=== PATIENT | female | born 1995 | race Caucasian/White ===

== ENCOUNTER 2017-11-08 07:47 | Outpatient (CLI) | payer OTHER ==
[~2017-11-08 07:47] MED LIST: ACETAMINOPHEN 325 MG TABLET PO PRN; DIPHENHYDRAMINE HCL 25 MG CAPSULE PO PRN; IRON DEXTRAN COMPLEX 25 MG in SYRINGE, DISPOSABLE, 1 EACH IV PRN; IRON DEXTRAN COMPLEX 975 MG in NORMAL SALINE 1000 ML 1,000 ML IV PRN; NORMAL SALINE 250 ML IV PRN
[2017-11-08 09:23] VITALS: BP 117/76
== END 2017-11-08 14:11 | disposition home or self-care (01) ==
LOC: II 07:47 → 5TH 07:54 → II 14:11
PROVIDERS: ATTEND Internal Medicine Hematology & Oncology
PROC: 3E033GC Introduction of Other Therapeutic Substance into Peripheral Vein, Percutaneous Approach (ICD-10-PCS; principal; 2017-11-08)
DX: D50.9 Iron deficiency anemia, unspecified (principal)
CPT/HCPCS: 96367; 96375; J1750; J7030; J3490; 96365; 96366

== ENCOUNTER 2017-12-19 00:24 | Inpatient (IN) | payer OTHER ==
[2017-12-19] MEDS ORDERED: PENICILLIN G-K 5 MILLION UNIT VIAL ONE ×6 (00:47→21:28)
[2017-12-19 01:06] LABS: ABSOLUTE EOSINOPHILS # (AUTO) 0.1 10^3/uL (0.0-0.6); ABSOLUTE LYMPHOCYTES (AUTO) 2.9 10^3/uL (0.5-4.7); ABSOLUTE MONOCYTES (AUTO) 0.7 10^3/uL (0.1-1.4); ABSOLUTE NEUT (AUTO) 6.7 10^3/uL (1.7-8.2); BASOPHILS % (AUTO) 0.4 % (0-2); HEMATOCRIT 34.7 % (36.0-47.0); HEMOGLOBIN 11.8 g/dL (12.0-15.5); LYMPHOCYTES % (AUTO) 27.7 % (13-45); MEAN CORPUSCULAR HEMOGLOBIN 27.5 pg (27.0-33.4); MEAN CORPUSCULAR VOLUME 81 fl (80-97); PLATELET COUNT 250 10^3/uL (150-450); RED BLOOD COUNT 4.29 10^6/uL (3.72-5.28); RED CELL DISTRIBUTION WIDTH 28.2 % (11.5-14.0); SEGMENTED NEUTROPHILS % (AUTO) 63.9 % (42-78); TOTAL CELLS COUNTED % (AUTO) 100 %; WHITE BLOOD COUNT 10.4 10^3/uL (4.0-10.5)
[2017-12-19 01:08] LABS: APPEARANCE,URINE TURBID; BILIRUBIN,URINE NEGATIVE (NEGATIVE); COLOR,URINE YELLOW; GLUCOSE, URINE NEGATIVE (NEGATIVE); KETONES,URINE NEGATIVE (NEGATIVE); LEUKOCYTE ESTERASE,URINE MODERATE (NEGATIVE); NITRITE,URINE NEGATIVE (NEGATIVE); PROTEIN,URINE 100 mg/dL (NEGATIVE); URINE SPECIFIC GRAVITY 1.004; UROBILINOGEN,URINE NEGATIVE mg/dL (<2.0)
[2017-12-19] MEDS ORDERED: PENICILLIN G POTASSIUM 5,000,000 UNIT in DEXTROSE 5%-WATER 100 ML IV ONE (01:09)
[2017-12-19] MEDS ORDERED: RINGERS SOLUTION,LACTATED 1,000 ML IV ONE (01:09)
--- NOTE | 2017-12-19 01:23 | L&D Progress Notes ---
PROGRESS NOTES Datetime Report Generated by CPN: 12/19/2017 01:22 PROGRESS NOTE Impression: Reassuring Heart Rate Plan: Continue Present Management Informed Consent Obtained: Vaginal Delivery; Section Delivery; Induction of Labor; Risks, Benefits and Alternatives Discussed Comment: The estimated weight by ulices is 10lbs. Greater than 4500 gms but less than 5000gms. No GDM. Risks discussed and she would like to proceed with a vaginal delivery. VAGINAL EXAM Dilatation: 2 Effacement: 60 Station: 0 MEMBRANES Pooling: Positive Membranes: Bulging FETUS A FHR - Baseline: 120 Variability: Moderate 6-25bpm FHR Category: Category I : 41.0 Presentation: Vertex SIGNATURE SIGNATURE: [id number] Signature: with User ID: [email or web address]
[2017-12-19 01:27] LABS: ANISOCYTOSIS 4+; OVALOCYTES 1+; POIKILOCYTOSIS 1+; SCHISTOCYTES 1+; TEAR DROP CELLS 1+; TOXIC GRANULATION 2+
[2017-12-19 01:28] LABS: PLATELET COMMENT ADEQUATE; PLATELET LARGE PRESENT
[2017-12-19] MEDS ORDERED: PENICILLIN G-K 5 MILLION UNIT VIAL IV PRN (01:43)
[2017-12-19 02:39] LABS: URINE AMPHETAMINES SCREEN NEGATIVE; URINE BARBITURATES SCREEN NEGATIVE; URINE BENZODIAZEPINES SCREEN NEGATIVE; URINE COCAINE SCREEN NEGATIVE; URINE MARIJUANA (THC) SCREEN NEGATIVE; URINE METHADONE SCREEN NEGATIVE; URINE PHENCYCLIDINE SCREEN NEGATIVE
[2017-12-19] MEDS: RINGERS SOLUTION,LACTATED 1,000 ML IV PRN (05:00)
[2017-12-19] MEDS ORDERED: PENICILLIN G POTASSIUM 2,500,000 UNIT in DEXTROSE 5%-WATER 50 ML IV SCH (05:10)
[2017-12-19] MEDS ORDERED: NALBUPHINE HCL INJ 10 MG/1 ML AMPULE INJ ONE (06:11)
[2017-12-19] MEDS ORDERED: OXYTOCIN/NORMAL SALINE 20 UNIT/1,000 ML RTUINJ IV PRN (06:11)
[2017-12-19] MEDS ORDERED: PROMETHAZINE HCL INJ 25 MG/1 ML VIAL IV ONE (06:11)
[2017-12-19] MEDS ORDERED: OXYTOCIN/NORMAL SALINE 20 UNIT/1,000 ML RTUINJ ONE ×2 (06:17→08:09)
[2017-12-19] MEDS ORDERED: PROMETHAZINE HCL INJ 25 MG/1 ML VIAL ONE (06:17)
[2017-12-19] MEDS ORDERED: NALBUPHINE HCL INJ 10 MG/1 ML AMPULE ONE (06:17)
[2017-12-19] MEDS ORDERED: MISOPROSTOL 0.2 MG TABLET ONE (08:09)
[2017-12-19] MEDS ORDERED: LIDOCAINE 1% INJ-PF (10 MG/ML) 30 ML SDV ONE (08:09)
[2017-12-19] MEDS: PENICILLIN G-K 5 MILLION UNIT VIAL IV SCH ×4 (10:00→21:35)
[2017-12-19] MEDS ORDERED: CITRIC ACID/SODIUM CITRATE ORAL SOLN 15 ML UDCUP ONE ×2 (12:53→23:09)
[2017-12-19] MEDS ORDERED: BUPIVACAINE HCL 0.25 % INJ/PF (2.5 MG/1 ML) 30 ML VIAL ONE (13:30)
[2017-12-19] MEDS ORDERED: FENTANYL/BUPIVACAINE/NS/PF 200 MCG/100 ML RTUINJ EPI ONE (13:30)
[2017-12-19] MEDS ORDERED: EPHEDRINE SULFATE INJ 50 MG/1 ML AMPULE ONE (13:30)
--- NOTE | 2017-12-19 13:43 | L&D Progress Notes ---
PROGRESS NOTES Datetime Report Generated by CPN: 12/19/2017 13:43 PROGRESS NOTE Impression: Normal Progression of Labor Procedures: Sterile Vag Exam Plan: Continue Present Management; Induction Informed Consent Obtained: Vaginal Delivery; Risks, Benefits and Alternatives Discussed Vital Signs : Reviewed Comment: Here for IOL due to PROM at 40+6ega. Currently on pitocin for IOL. Pt feeling more discomfort with ctx. Cvx change noted and pt desires epidural. EFW 9#14oz. Pelvis adequate for continued GERRY at this time. VAGINAL EXAM Dilatation: 5 Effacement: 80 Station: 0 Contractions: q 2-3 MEMBRANES Membranes: Ruptured Amniotic Fluid Color: Clear FETUS A FHR - Baseline: 130 Monitoring: External US Variability: Moderate 6-25bpm Accelerations: 15X15 Decelerations: None FHR Category: Category I FETUS C SIGNATURE: [id number] Signature: with User ID: [email or web address]
[2017-12-19] MEDS ORDERED: GENTAMICIN SULFATE INJ 80 MG/2 ML VIAL IM ONE (16:34)
[2017-12-19] MEDS ORDERED: GENTAMICIN SULFATE INJ 80 MG/2 ML VIAL IV ONE (16:34)
[2017-12-19] MEDS ORDERED: GENTAMICIN SULFATE INJ 80 MG/2 ML VIAL ONE (16:51)
[2017-12-19] MEDS ORDERED: GENTAMICIN SULFATE 150 MG in DEXTROSE 5%-WATER 100 ML IV ONE (18:30)
[2017-12-19] MEDS ORDERED: ONDANSETRON HCL INJ/PF 4 MG/2 ML SDV ONE (23:58)
[2017-12-20] MEDS ORDERED: ONDANSETRON HCL INJ/PF 4 MG/2 ML SDV IV ONE (00:10)
[2017-12-20] MEDS ORDERED: CITRIC ACID/SODIUM CITRATE ORAL SOLN 15 ML UDCUP ONE (00:26)
[2017-12-20] MEDS ORDERED: CEFAZOLIN 2 GM/D5W RTU 2 GM/50 ML RTUPB IV ONE (00:27)
--- NOTE | 2017-12-20 00:28 | L&D Progress Notes ---
PROGRESS NOTES Datetime Report Generated by CPN: 12/20/2017 00:28 PROGRESS NOTE Impression: Arrest of Dilatation/Descent Procedures: Sterile Vag Exam Plan: Deliver- Section Informed Consent Obtained: Vaginal Delivery; Risks, Benefits and Alternatives Discussed Vital Signs : Reviewed Comment: MVUs not adequate but patient on pitocin 30 units for greater than 2 hours. Cervix unchanged since 1630 despite pitocin break and pitocin to 30 units with IUPC. Pt consented for Primary C/S for Arrest of Dilation. R/B/A reviewed and patient and family desire to proceed with planned procedure. VAGINAL EXAM Dilatation: 6 Effacement: 80 Station: 0 FETUS A FHR - Baseline: 150 Monitoring: External US Variability: Moderate 6-25bpm Accelerations: 15X15 Decelerations: None FHR Category: Category I FETUS C SIGNATURE: [id number] Signature: with User ID: [email or web address]
[2017-12-20] MEDS ORDERED: FENTANYL CITRATE INJ/PF 100 MCG/2 ML AMPUL ONE ×3 (00:37→03:57)
[2017-12-20] MEDS ORDERED: OXYTOCIN 10 UNIT/ML VIAL ONE (00:37)
[2017-12-20] MEDS ORDERED: OXYTOCIN/NORMAL SALINE 0 UNIT/0 ML RTUINJ ONE (00:38)
[2017-12-20] MEDS ORDERED: EPHEDRINE SULFATE INJ 50 MG/1 ML AMPULE ONE (00:38)
[2017-12-20] MEDS ORDERED: ONDANSETRON HCL INJ/PF 4 MG/2 ML SDV ONE (00:38)
[2017-12-20] MEDS ORDERED: MIDAZOLAM 2 MG/2 ML INJ ONE (00:38)
[2017-12-20] MEDS ORDERED: OXYCODONE-ACETAMINOPHEN 5-325 MG TABLET PO PRN ×3 (01:57→02:02)
[2017-12-20] MEDS ORDERED: MORPHINE SULFATE 10 MG/ML INJ IV PRN (01:57)
[2017-12-20] MEDS ORDERED: MEPERIDINE HCL/PF INJ 25 MG/1 ML DISP.SYRIN IV PRN (01:57)
[2017-12-20] MEDS ORDERED: FENTANYL CITRATE INJ/PF 100 MCG/2 ML AMPUL IV PRN ×3 (01:57)
[2017-12-20] MEDS ORDERED: DIPHENHYDRAMINE HCL 50 MG/ML VIAL IV PRN (01:57)
[2017-12-20] MEDS ORDERED: PROMETHAZINE HCL INJ 25 MG/1 ML VIAL IV PRN ×3 (01:57→02:02)
[2017-12-20] MEDS ORDERED: GENTAMICIN SULFATE 110 MG in DEXTROSE 5%-WATER 100 ML IV SCH (02:00)
[2017-12-20] MEDS ORDERED: GENTAMICIN SULFATE INJ 80 MG/2 ML VIAL IV SCH (02:00)
--- NOTE | 2017-12-20 02:01 | Brief Operative Note ---
BRIEF OPERATIVE REPORT DATE OF SURGERY: 12/20/17 TIME OF SURGERY: 02:00 PREOPERATIVE DIAGNOSIS: Arrest of Dilation, Failed Induction of labor, 41+0ega, PROM POSTOPERATIVE DIAGNOSIS: MIKE- delivered, macrosomia SURGEON: TEENA DRAKE FINDINGS: VMI, cephalic presentation, Time of 0107, Apgars 8/9, Weight 4835g (10#11oz), normal tubes/ovaries, IVF 1800ml, UOP 150ml, EBL 800ml COMPLICATIONS: None ESTIMATED BLOOD LOSS: 800ml TISSUE REMOVED OR ALTERED: placenta and cord - not sent to pathology TECHNICAL PROCEDURE: Primary Section
[2017-12-20] MEDS ORDERED: SIMETHICONE 80 MG TAB.CHEW PO PRN (02:02)
[2017-12-20] MEDS ORDERED: ACETAMINOPHEN 325 MG TABLET PO PRN (02:02)
[2017-12-20] MEDS ORDERED: HYDROMORPHONE HCL INJ/PF 2 MG/ML AMPULE IV PRN (02:02)
[2017-12-20] MEDS ORDERED: MEASLES,MUMPS&RUBELLA VACC/PF 0.5 ML VIAL SUBCUT PRN (02:02)
[2017-12-20] MEDS ORDERED: DIPH/PERTUSS(ACELL)/TETANUS VAC/PF 0.5 ML SYR (>=10YO) IM PRN (02:02)
[2017-12-20] MEDS ORDERED: OXYTOCIN/NORMAL SALINE 20 UNIT/1,000 ML RTUINJ IV PRN (02:02)
[2017-12-20] MEDS ORDERED: ACETAMINOPHEN 100 ML IV PRN (02:02)
[2017-12-20] MEDS ORDERED: MISOPROSTOL 0.2 MG TABLET PR ONE (02:04)
[2017-12-20] MEDS ORDERED: MEPERIDINE HCL/PF INJ 25 MG/1 ML DISP.SYRIN ONE (02:08)
[2017-12-20] MEDS ORDERED: AMPICILLIN SOD/SULBACTAM 3 GM VIAL IV PRN (02:15)
[2017-12-20] MEDS ORDERED: AMPICILLIN SOD/SULBACTAM 3 GM VIAL ONE (02:15)
[2017-12-20] MEDS ORDERED: OXYTOCIN/NORMAL SALINE 20 UNIT/1,000 ML RTUINJ ONE (02:20)
[2017-12-20] MEDS ORDERED: HYDROMORPHONE HCL INJ/PF 2 MG/ML AMPULE ONE (02:36)
[2017-12-20] MEDS ORDERED: KETOROLAC TROMETHAMINE INJ/PF 30 MG/1 ML SDV ONE (02:36)
[2017-12-20] MEDS ORDERED: ACETAMINOPHEN 100 ML IV ONE (02:53)
[2017-12-20] MEDS ORDERED: AMPICILLIN SODIUM/SULBACTAM NA 3 GM in NORMAL SALINE 100 ML IV SCH (03:00)
[2017-12-20] MEDS: KETOROLAC TROMETHAMINE INJ/PF 30 MG/1 ML SDV IV SCH ×2 (03:23→17:40)
--- NOTE | 2017-12-20 03:31 | Delivery Summary ---
Del Sum A-C Datetime Report Generated by CPN: 12/20/2017 03:31 DELIVERY PERSONNEL DELIVERY PERSONNEL: [id number] Delivery Doctor:: Hallie Hines MD Anesthesiologist:: Kali Aguirre MD LAUNDRY TUB MAKER:: Jan Dougherty CRNA Labor and Delivery Nurse:: Frances Mittal RN Neonatal Nurse Practitioner:: DANI Tavarez Nursery Nurse:: Vicki Escoto RN MSN Center Medical Specialist/MOLDER WAX BALL: Pricilla Spencer, [employer] SALES REP Center Medical Specialist/MOLDER WAX BALL: [facility] Additional Personnel: : Santiago Love [employer]OLDER [employer]ALL MATERNAL INFORMATION Delivery Anesthesia: Epidural Medications After Delivery: Pitocin Drip 20 Units/1000ml NSS; Other-Please Comment Meds After Delivery Comment: cytotec 1000 mcg [place] Estimated Blood Loss (ml): 700 Maternal Complications: Premature Rupture of Membranes LABOR SUMMARY EDC: 12/13/2017 00:00 No. Babies in Womb: 1 Labor Anesthesia: Epidural LABOR INFORMATION Reason for Induction: Premature Rupture of Membranes Onset of Labor: 12/19/2017 10:07 Oxytocin: Induction Group B Beta Strep: Positive Steroids Given: None Reason Steroids Not Administered: Not Applicable MEMBRANES Membranes Rupture Method: Spontaneous Rupture of Membranes: 12/18/2017 23:50 Length of Rupture (hr): 25.28 Amniotic Fluid Color: Clear Amniotic Fluid Amount: Moderate Amniotic Fluid Odor: Normal STAGES OF LABOR Stage 3 hr: 0 Stage 3 min: 1 Total Time in Labor hr: 15 Total Time in Labor min: 1 VAGINAL DELIVERY Episiotomy: None Laceration #1: None Laceration Extension #1: N/A Laceration Repair: Not Applicable Sponge Count Correct: N/A Sharps Count Correct: N/A CSECTION DELIVERY Primary Indication: Arrest of Dilatation CSection Urgency: Non-Scheduled CSection Incidence: Primary Labor: Labor Elective: Nonelective CSection Incision: Lower Uterine Transverse BABY A INFORMATION Infant Delivery Date/Time: 12/20/2017 01:07 Method of Delivery: Born in Route : No : N/A Forceps: N/A Vacuum Extraction: N/A Shoulder Dystocia : No PRESENTATION/POSITION BABY A Presentation: Cephalic Cephalic Presentation: Vertex PLACENTA INFORMATION BABY A Placenta Delivery Time : 12/20/2017 01:08 Placenta Method of Delivery: Manual Removal Placenta Status: Delivered SCORES BABY A Heart Rate 1 min: >100 bpm Resp Effort 1 min: Good Cry Reflex Irritability 1 min: Cough or Sneeze or Pulls Away Muscle Tone 1 min: Active Motion Color 1 min: Blue/Pale Resuscitation Effort 1 min: Tactile Stimulation SCORE 1 MIN: 8 Heart Rate 5 min: >100 bpm Resp Effort 5 min: Good Cry Reflex Irritability 5 min: Cough or Sneeze or Pulls Away Muscle Tone 5 min: Active Motion Color 5 min: Body [place], Extremities Blue Resuscitation Effort 5 min: Tactile Stimulation SCORE 5 MIN: 9 INFORMATION BABY A Gestational Age at Delivery: 41.0 Gestational Status: Late Term- 41- 41.6 Weeks Infant Outcome : Liveborn Infant Condition : Stable Sex: Male IDENTIFICATION BABY A Verification Date/Time: 12/20/2017 01:15 ID Band Number: [id number] Mother's Name Verified: Yes RN Verifying Infant: CFederico Lowe, RN WEIGHT/LENGTH BABY A Birthweight (gm): 4835 Infant Weight (lb): 10 Infant Weight (oz): 11 Infant Length (in): 21.75 Infant Length (cm): 55.25 CORD INFORMATION BABY A No. Cord Vessels: 3 Nuchal Cord : N/A Cord Blood Taken: Yes-For Eval (Mom's Blood Type - or O+) Infant Suction: Mouth ASSESSMENT BABY A Skin to Skin: Yes Care By: K Escoto, RN _ K Santoyo, CARPENTER REFRIGERATOR Transferred To: Nursery BABY B INFORMATION : N/A
--- NOTE | 2017-12-20 04:31 | Admission Physical ---
Datetime Report Generated by CPN: 12/20/2017 04:30 CURRENT ADMISSION Chief Complaint: Uterine Contractions; Suspected Ruptured Membranes Indication for Induction: Post Dates Indication for Induction: Term, Intrauterine ; No Active Labor; Ruptured Membranes Admit Plan: Admit to Unit; Initiate Labor Induction Protocol ALLERGIES Medication Allergies: No Medication Allergies: No Known Allergies (12/19/2017) Medication Allergies: No Known Allergies (11/05/2017) Latex: No Latex Allergies Food Allergies: none Environmental Allergies: none OBSTETRICAL HISTORY EDC: 12/13/2017 00:00 : 1 Para: 0 Term: 0 : 0 SAB: 0 IAB: 0 Ectopic: 0 Livin Cesareans: 0 VBACs: 0 Multiple Births: 0 Gestational Diabetes: No Rh Sensitization: No Incompetent Cervix: No PHILLIP: No Infertility: No ART Treatment: No Uterine Anomaly: No IUGR: No Hx Previous C/S: No Macrosomia: No Hx Loss/Stillborn: No PIH: No Hx : No Placenta Previa/Abruption: No Depression/PP Depression: No PTL/PROM: No Post Hemorrhage: No Current Procedures: NST Obstetrical History Comments: G1- current SEE RECORDS Alcohol: No Marijuana : No Cocaine: No Other Illicit Drugs: No Cigarettes: Never Smoker. [id number] MEDICAL HISTORY Diabetes: No Blood Transfusion: No Pulmonary Disease (Asthma, TB): No Breast Disease: No Hypertension: No Product Support Rep Surgery: No Heart Disease: No Hosp/Surgery: Yes Autoimmune Disorder: No Anesthetic Complications: No Kidney Disease: No Abnormal Pap Smear: No Neuro/Epilepsy: No Psychiatric Disorders: No Other Medical Diseases: Yes Hepatitis/Liver Disease: No Significant Family History: No Varicosities/Phlebitis: No Trauma/Violence : No Thyroid Dysfunction: Yes Medical History Comments: anemia, thyroid removed in 2006 due to thyroid cancer INFECTIOUS HISTORY Gonorrhea: No Genital Herpes: No Chlamydia: No Tuberculosis: No Syphilis: No Hepatitis: No HIV/AIDS Exposure: No Rash or Viral Illness: No HPV: No PHYSICAL EXAM General: Normal HEENT: Normal Neurologic: Normal Thyroid: Normal Heart: Normal Lungs: Normal Breast: Deferred Back: Normal Abdomen: Normal Genitourinary Exam: Normal Extremities: Normal DTRs: Normal Pelvic Type: Adequate Vital Signs: Reviewed VAGINAL EXAM Dilatation: 6 Dilatation: 5 Dilatation: 2 Effacement: 80 Effacement: 80 Effacement: 60 Station: 0 Station: 0 Station: 0 Contraction Comments: q 2-3 MEMBRANES Pooling: Positive Membranes: Ruptured Membranes: Bulging Amniotic Fluid Color: Clear FETUS A EGA: 40.6 Monitoring: External US FHR- Baseline: 120 Variability: Moderate 6-25bpm FHR Category: Category I Presentation: Vertex Admit Comment: Admit. EFW is 8 lbs. PLANS FOR LABOR AND DELIVERY Labor and Delivery: None Pain Management: Epidural Feeding Preference: Breast Benefit of Breast Feed Discussed: Yes Circumcision: Yes INFORMED CONSENT Informed Consent Obtained: Vaginal Delivery; Risks, Benefits and Alternatives Discussed Informed Consent Obtained: Vaginal Delivery; Risks, Benefits and Alternatives Discussed Informed Consent Obtained: Vaginal Delivery; Section Delivery; Induction of Labor; Risks, Benefits and Alternatives Discussed Signature: with User ID: [email or web address]
[2017-12-20] MEDS: AMPICILLIN SODIUM/SULBACTAM NA 3 GM in NORMAL SALINE 100 ML IV SCH ×3 (09:18→21:07)
[2017-12-20] MEDS: DOCUSATE SODIUM 100 MG CAPSULE PO SCH ×2 (09:19→17:40)
[2017-12-20] MEDS: PRENATAL VITAMIN W DHA CAPSULE PO SCH (09:19)
[2017-12-20] MEDS: OXYCODONE-ACETAMINOPHEN 5-325 MG TABLET PO PRN (15:37)
[2017-12-20] MEDS: RINGERS SOLUTION,LACTATED 1,000 ML IV PRN (21:29)
[2017-12-20] MEDS: IBUPROFEN 800 MG TABLET PO SCH (23:22)
[2017-12-21] MEDS: AMPICILLIN SODIUM/SULBACTAM NA 3 GM in NORMAL SALINE 100 ML IV SCH ×2 (02:04→08:48)
[2017-12-21] MEDS: OXYCODONE-ACETAMINOPHEN 5-325 MG TABLET PO PRN ×3 (02:46→18:14)
[2017-12-21] MEDS: IBUPROFEN 800 MG TABLET PO SCH ×3 (05:05→18:14)
[2017-12-21 07:12] LABS: HEMATOCRIT 27.9 % (36.0-47.0); MEAN CORPUSCULAR HEMOGLOBIN 28.2 pg (27.0-33.4); MEAN CORPUSCULAR HGB CONC 34.5 g/dL (32.0-36.0); MEAN CORPUSCULAR VOLUME 82 fl (80-97); PLATELET COUNT 236 10^3/uL (150-450); RED BLOOD COUNT 3.42 10^6/uL (3.72-5.28); RED CELL DISTRIBUTION WIDTH 29.1 % (11.5-14.0); WHITE BLOOD COUNT 12.5 10^3/uL (4.0-10.5)
[2017-12-21 07:59] LABS: HEMOGLOBIN 9.6 g/dL (12.0-15.5)
[2017-12-21] MEDS: DOCUSATE SODIUM 100 MG CAPSULE PO SCH ×2 (08:53→18:14)
[2017-12-21] MEDS: PRENATAL VITAMIN W DHA CAPSULE PO SCH (08:53)
--- NOTE | 2017-12-21 11:33 | PDOC PROGRESS REPORT ---
Subjective-OB Subjective: Post Delivery Day: 22 year old. Denies any needs at this time Physical Exam (OB) Vital Signs: Temp Pulse Resp BP Pulse Ox 97.8 F 57 L 18 112/69 97 12/21/17 07:47 12/21/17 07:47 12/21/17 07:47 12/21/17 07:47 12/21/17 07:47 Intake & Output 12/20/17 12/21/17 12/22/17 06:59 06:59 06:59 Intake Total 800 Output Total 1950 Balance -1150 - PIH/Pre-Eclampsia DTR's: 2 + Clonus: Negative Headache: Absent Epigastric Pain: No Visual Changes: No - Incision: Well Approximated - Lochia Lochia Amount: Scant < 10 ml Lochia Color: Rubra/Red - Abdomen Description: Soft Hernia Present: No Bowel Sounds: Normoactive Flatus Presence: Present Stool: Yes Fundal Description: Firm, Midline Fundal Height: u/u - u/2 Objective-Diagnostic Laboratory: 12/21/17 06:29 12/21/17 06:29 WBC 12.5 H RBC 3.42 L Hgb 9.6 L D Hct 27.9 L MCV 82 MCH 28.2 MCHC 34.5 RDW 29.1 H Plt Count 236
[2017-12-22] MEDS: IBUPROFEN 800 MG TABLET PO SCH ×3 (00:17→11:21)
[2017-12-22] MEDS ORDERED: LEVOTHYROXINE SODIUM 0.075 MG TABLET PO SCH (08:00)
[2017-12-22] MEDS ORDERED: LEVOTHYROXINE SODIUM 0.1 MG TABLET PO SCH (08:00)
--- NOTE | 2017-12-22 09:59 | PDOC PROGRESS REPORT ---
Subjective-OB Subjective: Post Delivery Day: 22 year old. Denies any needs at this time. Ready to go home. Physical Exam (OB) Vital Signs: Temp Pulse Resp BP Pulse Ox 97.3 F 64 16 124/64 100 12/22/17 03:49 12/22/17 03:49 12/22/17 03:49 12/22/17 03:49 12/22/17 03:49 Intake & Output 12/21/17 12/22/17 12/23/17 06:59 06:59 06:59 Intake Total 800 Output Total 1950 Balance -1150 - PIH/Pre-Eclampsia DTR's: 2 + Clonus: Negative Headache: Absent Epigastric Pain: No Visual Changes: No - Incision: Open, Well Approximated Closure Type: Surgical Glue - Lochia Lochia Amount: Small 10-25 ml Lochia Color: Rubra/Red - Abdomen Description: Soft, Round Hernia Present: No Bowel Sounds: Normoactive Flatus Presence: Present Stool: Yes Fundal Description: Firm, Midline Fundal Height: u/u - u/2 Objective-Diagnostic Laboratory: 12/21/17 06:29
--- NOTE | 2017-12-22 10:06 | PDOC DISCHARGE SUMMARY ---
Final Diagnosis Discharge Date: 12/22/17 - Final Diagnosis (1) Anemia Is this a current diagnosis for this admission?: Yes (2) Arrest of dilation, delivered, current hospitalization Is this a current diagnosis for this admission?: Yes (3) delivery delivered Is this a current diagnosis for this admission?: Yes (4) Full-term premature rupture of membranes Is this a current diagnosis for this admission?: Yes (5) History of thyroidectomy Is this a current diagnosis for this admission?: Yes (6) History of thyroidectomy cancer Is this a current diagnosis for this admission?: Yes (7) Macrosomia Is this a current diagnosis for this admission?: Yes Discharge Data - Discharge Medication Prescriptions: Oxycodone HCl/Acetaminophen [Percocet 5-325 mg Tablet] 1 tab PO Q4HP PRN #20 tablet PRN Reason: Ibuprofen [Motrin 800 mg Tablet] 800 mg PO Q6 #30 tablet Home Medications: Levothyroxine Sodium 275 mcg PO DAILY 12/19/17 Vit No.129/Iron/Folic [ One Daily Tablet] 1 each PO DAILY 12/19 Ibuprofen [Motrin 800 mg Tablet] 800 mg PO Q6 #30 tablet 12/22/17 Levothyroxine Sodium [Synthroid 0.075 mg Tablet] 0.075 mg PO QAM tablet Levothyroxine Sodium [Synthroid 0.1 mg Tablet] 0.1 mg PO QAM tablet 12/22/17 Oxycodone HCl/Acetaminophen [Percocet 5-325 mg Tablet] 1 tab PO Q4HP PRN #20 tablet 12/22/17 Gestational Age: 41.0 wks Reason(s) for Admission: Induction of Labor Procedures: Ultrasound Intrapartum Procedure(s): : Low Cervical, Transverse - Golden Data Baby 1 Male at 1 minute: 8 at 5 minutes: 9 Weight: 4.848 kg Home with Mother: Yes Complications: No - Diagnosis Test Laboratory: Temp Pulse Resp BP Pulse Ox 97.3 F 64 16 124/64 100 12/22/17 03:49 12/22/17 03:49 12/22/17 03:49 12/22/17 03:49 12/22/17 03:49 12/19/17 12/19/17 12/21/17 00:40 00:54 06:29 RBC 4.29 3.42 L Hgb 11.8 L 9.6 L D Hct 34.7 L 27.9 L Urine Opiates Screen NEGATIVE - Discharge information/Instructions Discharge Activity: Activity As Tolerated, Balance Activity w/Rest, No Lifting Over 10 Pounds, No Lifting/Push/Pulling, Pelvic Rest, Slowly Increase Activity, No tub bath Discharge Diet: Regular Disposition: HOME, SELF-CARE Follow up with: [facility] in: 1, Weeks
[2017-12-22] MEDS: PRENATAL VITAMIN W DHA CAPSULE PO SCH (10:35)
[2017-12-22] MEDS: DOCUSATE SODIUM 100 MG CAPSULE PO SCH (10:35)
[2017-12-22 12:32] VITALS: BP 105/62
== END 2017-12-22 13:47 | disposition home or self-care (01) | DRG 766 ==
LOC: LC 00:24 → LR 00:46 → 2S 12-20 04:10
PROVIDERS: ADMIT Student in an Organized Health Care Education/Training Program; ATTEND Student in an Organized Health Care Education/Training Program
PROC: 4A1HXCZ Monitoring of Products of Conception, Cardiac Rate, External Approach (ICD-10-PCS; 2017-12-19)
PROC: 10D00Z1 Extraction of Products of Conception, Low, Open Approach (ICD-10-PCS; principal; 2017-12-20)
PROC: 10H07YZ Insertion of Other Device into Products of Conception, Via Natural or Artificial Opening (ICD-10-PCS; 2017-12-20)
PROC: 4A1H7CZ Monitoring of Products of Conception, Cardiac Rate, Via Natural or Artificial Opening (ICD-10-PCS; 2017-12-20)
DX: O62.1 Secondary uterine inertia (principal); O48.0 Post-term pregnancy; O61.1 Failed instrumental induction of labor; O99.284 Endocrine, nutritional and metabolic diseases complicating childbirth; O36.63X0 Maternal care for excessive fetal growth, third trimester, not applicable or unspecified; O42.92 Full-term premature rupture of membranes, unspecified as to length of time between rupture and onset of labor; E89.0 Postprocedural hypothyroidism; O99.02 Anemia complicating childbirth; D64.9 Anemia, unspecified; Z37.0 Single live birth; Z3A.41 41 weeks gestation of pregnancy; Z85.850 Personal history of malignant neoplasm of thyroid
CPT/HCPCS: 1961; 36415; 80307; 81005; 85025; 85027; 86592; 86850; 86870; 86900; 86901; 94799; J0131; J0295; J0690; J1170; J1580; J1885; J2175; J2250; J2300; J2405; J2540; J2550; J2590; J3010; J3490; J7120